=== PATIENT | male | born 1965 | race African-American/Black ===

== ENCOUNTER 2018-05-23 02:30 | Emergency (ER) | payer OTHER ==
--- NOTE | 2018-05-23 02:42 | PDOC ---
History of Present Illness - General Stated Complaint: WEAKNESS Time Seen by Provider: 05/23/18 02:41 History Source: Patient Exam Limitations: No Limitations - History of Present Illness Initial Comments: 05/23/18 05:46 Mr. Thomas is a 53 yo M with a hx of GERD who presents to the emergency department with generalized fatigue and throat pain. He states he has been feeling fatigue for the past week. He endorses having poor quality sleep and is "napping during work" which is a new phenomenon. In addition, he endorses having rhinorrhea with loose stool, but denies recent sick contacts, fever, cough, and dysuria. He expressed concern with having oral exposure to trichomoniasis over the past week from a female partner. Pmhx: GERD Shx: None Medications: None Allergies: NKDA Social: smokes 0.5-1 pack/day, and denies drinking and illicit substance use. PCP: Nohemi العراقي. Past History - Past Medical History Allergies/Adverse Reactions: Allergies Allergy/AdvReac Type Severity Reaction Status Date / Time No Known Allergies Allergy Verified 05/23/18 03:04 Home Medications: Ambulatory Orders Unobtainable 05/23/18 Review of Systems - Review of Systems Able to Perform ROS?: Yes Constitutional: Yes: Weakness. No: Chills, Fever, Night Sweats HEENTM: Yes: Throat Pain. No: Recent change in vision, Ear Discharge, Nose Pain , Mouth Pain, Mouth Swelling Respiratory: No: Cough, Shortness of Breath Cardiac (ROS): No: Chest Pain, Lightheadedness, Palpitations ABD/GI: No: Abdominal Distended, Constipated, Diarrhea, Nausea, Rectal Bleeding , Vomiting, Tarry Stools : No: Burning, Dysuria, Hematuria Musculoskeletal: No: Back Pain Integumentary: No: Rash Neurological: No: Headache, Ataxia Psychiatric: Yes: Sleep Pattern Change Endocrine: No: Unexplained Weight Gain Hematologic/Lymphatic: No: Anemia *Physical Exam - Physical Exam General Appearance: Yes: Nourished, Appropriately Dressed HEENT: positive: EOMI, AUSTEN, Pharyngeal Erythema, Tonsillar Erythema. negative : Tonsillar Exudate, Sinus Tenderness, TM Bulging Neck: negative: Lymphadenopathy (R), Lymphadenopathy (L) Respiratory/Chest: positive: Lungs Clear, Normal Breath Sounds Cardiovascular: positive: Regular Rhythm, Regular Rate, S1, S2. negative: Systolic Murmur Vascular Pulses: Dorsalis-Pedis (R): 3+, Doralis-Pedis (L): 3+ Gastrointestinal/Abdominal: positive: Normal Bowel Sounds. negative: Tender Lymphatic: negative: Adenopathy Musculoskeletal: positive: Normal Inspection. negative: CVA Tenderness Extremity: positive: Other (hx of fasciotomy). negative: Calf Tenderness Integumentary: positive: Normal Color, Dry, Warm Neurologic: positive: airplane tester II-XII NML intact, Fully Oriented, Alert ED Treatment Course - LABORATORY CBC & Chemistry Diagram: 05/23/18 04:12 05/23/18 04:12 Medical Decision Making - Medical Decision Making 05/23/18 05:58 Mr. Thomas is a 53 yo M with a hx of GERD who presented with generalized fatigue and throat pain. Initial vitals: Initial Vital Signs Temp Pulse Resp BP Pulse Ox 97.6 F 74 20 122/103 99 05/23/18 03:04 05/23/18 03:04 05/23/18 03:04 05/23/18 03:04 05/23/18 03:04 Work up: Laboratory Results - last 24 hr 05/23/18 05/23/18 05/23/18 03:24 04:12 04:12 WBC 4.7 RBC 5.20 Hgb 13.4 Hct 40.9 MCV 78.7 L MCH 25.8 MCHC 32.8 RDW 15.4 Plt Count 208 MPV 8.9 Absolute Neuts (auto) 2.0 Neutrophils % 41.4 L Lymphocytes % 50.9 H Monocytes % 5.6 Eosinophils % 1.4 Basophils % 0.7 Nucleated RBC % 0 Sodium 145 Potassium 3.9 Chloride 109 H Carbon Dioxide 27 Anion Gap 9 BUN 11 Creatinine 1.0 Creat Clearance w eGFR > 60 Random Glucose 111 H Calcium 8.8 Total Bilirubin 0.4 AST 15 ALT 22 Alkaline Phosphatase 90 Creatine Kinase Troponin I Total Protein 7.0 Albumin 3.7 Urine Color Ltyellow Urine Appearance Clear Urine pH 5.0 Ur Specific [place] 1.014 Urine Protein 1+ H Urine Glucose (UA) Negative Urine Ketones Negative Urine Blood Negative Urine Nitrite Negative Urine Bilirubin Negative Urine Urobilinogen Negative Ur Leukocyte Esterase Negative Urine WBC (Auto) 2 Urine RBC (Auto) <1 Urine Mucus Rare HIV 1&2 Antibody Screen HIV P24 Antigen 05/23/18 05/23/18 04:12 04:12 WBC RBC Hgb Hct MCV MCH MCHC RDW Plt Count MPV Absolute Neuts (auto) Neutrophils % Lymphocytes % Monocytes % Eosinophils % Basophils % Nucleated RBC % Sodium Potassium Chloride Carbon Dioxide Anion Gap BUN Creatinine Creat Clearance w eGFR Random Glucose Calcium Total Bilirubin AST ALT Alkaline Phosphatase Creatine Kinase 91 Troponin I < 0.02 Total Protein Albumin Urine Color Urine Appearance Urine pH Ur Specific [place] Urine Protein Urine Glucose (UA) Urine Ketones Urine Blood Urine Nitrite Urine Bilirubin Urine Urobilinogen Ur Leukocyte Esterase Urine WBC (Auto) Urine RBC (Auto) Urine Mucus HIV 1&2 Antibody Screen Negative HIV P24 Antigen Negative Pending labs on STDs given history. Patient requested HIV/STD work up given his partner having a recent positive trichomoniasis. Disposition: D/C home *DC/Admit/Observation/Transfer Diagnosis at time of Disposition: Pharyngitis Qualifiers: Pharyngitis/tonsillitis etiology: unspecified etiology Qualified Code(s): J02.9 - Acute pharyngitis, unspecified - Discharge Dispostion Disposition: HOME Decision to Admit order: No - Referrals Referrals: [facility] [Provider Group] - Patient Instructions Printed Discharge Instructions: DI for Pharyngitis/Tonsillopharyngitis -- Adult Additional Instructions: You have been diagnosed with pharyngitis. Please follow up with your primary care doctor or with our internal medicine clinic within 1-2 days for follow up care. Please return to the emergency department if there are worsening of symptoms or new concerning ones arising. - Post Discharge Activity
--- NOTE | 2018-05-23 02:43 | PDOC ---
Attending Attestation - HPI HPI: 05/23/18 04:33 The patient is a 53 year old male who presents to the emergency department for evaluation of generalized weakness and left arm pain. The patient reports left arm pain radiating to her elbow. He reports the pain is exacerbated with shoulder movement. He reports associated symptoms of generalized weakness, sore throat, and rhinorrhea. Pt states he visits the ED for further evaluation of his symptoms secondary to recently having oral sex with a female who has trichomoniasis The patient denies chest pain, shortness of breath, headache, and dizziness. Denies fever, chills, nausea, and vomiting. Denies diarrhea, constipation, urinary frequency/urgency, dysuria, and hematuria. 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 Smokes half a pack per day. No reported alcohol or drug use. - Physicial Exam PE: GENERAL: Awake, alert, and fully oriented, in no acute distress HEAD: No signs of trauma EYES: PERRLA, EOMI, sclera anicteric, conjunctiva clear ENT: (+)Pharyngeal erythema. Auricles normal inspection, hearing grossly normal , nares patent, oropharynx clear without exudates. Moist mucosa NECK: Normal ROM, supple, no lymphadenopathy, JVD, or masses LUNGS: Breath sounds equal, clear to auscultation bilaterally. No wheezes, and no crackles HEART: Regular rate and rhythm, normal S1 and S2, no murmurs, rubs or gallops ABDOMEN: Soft, nontender, normoactive bowel sounds. No guarding, no rebound. No masses EXTREMITIES: Normal range of motion, no edema. No clubbing or cyanosis. No cords, erythema, or tenderness NEUROLOGICAL: Cranial nerves II through XII grossly intact. Normal speech, normal gait SKIN: Warm, Dry, normal turgor, no rashes or lesions noted. <Luh Schultz - Last Filed: 05/23/18 05:36> - Resident Resident Name: Nixon Sy - ED Attending Attestation I have performed the following: I have examined & evaluated the patient, The case was reviewed & discussed with the resident, I agree w/resident's findings & plan - Medical Decision Making 05/23/18 21:13 Pt has a viral pharyngitis. Home with PMD follow up. 05/23/18 21:13 He requested HIV test. HIV negative. <Gisele Reina - Last Filed: 05/23/18 21:14> Attestations - Attestations Documentation prepared by Luh Schultz, acting as biomedical service engineer for Gisele Reina MD. <Luh Schultz - Last Filed: 05/23/18 05:36>
[2018-05-23 03:06] VITALS: BP 122/103; PULSE 74; TEMP 97.6; BMI 40.8
[2018-05-23] MEDS ORDERED: ASPIRIN 325 MG TABLET PO ONE (04:04)
[2018-05-23] MEDS ORDERED: ASPIRIN 325 MG TABLET ONE (04:09)
[2018-05-23 04:29] LABS: BASO % 0.7 % (0-2.0); EOS % 1.4 % (0-4.5); HEMATOCRIT 40.9 % (35.4-49); HEMOGLOBIN 13.4 GM/dL (11.7-16.9); LYMPH % 50.9 % (8-40); MCH 25.8 pg (25.7-33.7); MCHC 32.8 g/dl (32.0-35.9); MEAN CELL VOLUME 78.7 fl (80-96); MEAN PLT VOLUME 8.9 fl (7.5-11.1); MONO % 5.6 % (3.8-10.2); NEUT % 41.4 % (42.8-82.8); PLATELET COUNT 208 K/MM3 (134-434); RDW 15.4 % (11.9-15.9); WHITE BLOOD COUNT 4.7 K/mm3 (4.0-10.0)
[2018-05-23 04:43] LABS: URINE APPEARANCE CLEAR; URINE BILIRUBIN NEGATIVE (<2.0 mg/dL); URINE COLOR LTYELLOW; URINE GLUCOSE (UA) NEGATIVE (NEGATIVE); URINE KETONE NEGATIVE (NEGATIVE); URINE LEUK ESTERASE NEGATIVE (NEGATIVE); URINE NITRITE NEGATIVE (NEGATIVE); URINE UROBILINOGEN NEGATIVE mg/dL (0.2-1.0)
[2018-05-23 04:50] LABS: URINE PROTEIN 1+ (NEGATIVE)
[2018-05-23 04:51] LABS: URINE MUCUS RARE
[2018-05-23 04:57] LABS: ALBUMIN 3.7 g/dl (3.4-5.0); ALK PHOS 90 U/L (45-117); ANION GAP 9 (8-16); BILIRUBIN,TOTAL 0.4 mg/dL (0.2-1.0); BLOOD UREA NITROGEN 11 mg/dL (7-18); CALCIUM 8.8 mg/dL (8.5-10.1); CHLORIDE 109 mmol/L (98-107); CO2 27 mmol/L (21-32); GLUCOSE,RANDOM 111 mg/dL (74-106); POTASSIUM 3.9 mmol/L (3.5-5.1); SGOT/AST 15 U/L (15-37); SGPT/ALT 22 U/L (12-78); SODIUM 145 mmol/L (136-145)
--- NOTE | 2018-05-24 10:24 | EKG ---
Test Reason : Blood Pressure : / mmHG Vent. Rate : 064 BPM Atrial Rate : 064 BPM P-R Int : 186 ms QRS Dur : 100 ms QT Int : 406 ms P-R-T Axes : 063 024 038 degrees QTc Int : 418 ms NORMAL SINUS RHYTHM NORMAL ECG NO PREVIOUS ECGS AVAILABLE Confirmed by ROD DISLA MD ([id number]) on 05/24/2018 10:24:27 AM Referred By: Confirmed By:ROD DISLA MD
== END 2018-05-23 05:51 | disposition home or self-care (01) ==
LOC: JER 02:30
DX: J02.9 Acute pharyngitis, unspecified (principal); Z20.2 Contact with and (suspected) exposure to infections with a predominantly sexual mode of transmission; Z11.3 Encounter for screening for infections with a predominantly sexual mode of transmission
CPT/HCPCS: 36415; 80053; 81003; 81015; 82550; 84484; 85025; 87086; 87389; 87491; 87591; 93005; 93010; 99282-25

== ENCOUNTER 2018-11-09 02:37 | Emergency (ER) | payer OTHER ==
[2018-11-09 03:17] VITALS: BP 122/75; PULSE 77; TEMP 98.5; BMI 42.3
--- NOTE | 2018-11-09 03:17 | PDOC ---
Medical Decision Making - Medical Decision Making 11/09/18 03:17 Patient seen by the advanced practice provider under my direct supervision. Ancillary testing reviewed as necessary. I agree with plan as outlined by the advanced practice provider. *DC/Admit/Observation/Transfer Diagnosis at time of Disposition: Urethritis - Discharge Dispostion Disposition: HOME Condition at time of disposition: Fair - Prescriptions Prescriptions: Doxycycline Monohydrate [Monodox] 100 mg PO Q12H #14 capsule - Referrals - Patient Instructions Printed Discharge Instructions: Urethritis Additional Instructions: drink plenty of fluids you are treated for sexually transmitted disease. your partner should be tested. no sexual activity for 1 week. follow up with your doctor as soon as possible. - Post Discharge Activity Forms/Work/School Notes: Back to Work
--- NOTE | 2018-11-09 03:18 | PDOC ---
History of Present Illness - General Chief Complaint: Urinary Problem Stated Complaint: URINARY PROBLEM Time Seen by Provider: 11/09/18 03:14 History Source: Patient - History of Present Illness Initial Comments: 11/09/18 03:42 53 year-old male complaining of dysuria and frequency of urination with penile discharge for 3 weeks worsening over time. Denies abdominal pain, flank pain, nausea, vomiting, fever, chills. Patient reports that he had a new girlfriend unsure of any STI exposure reports that the condom broke. Previously. Past History - Past Medical History Allergies/Adverse Reactions: Allergies Allergy/AdvReac Type Severity Reaction Status Date / Time No Known Allergies Allergy Verified 11/09/18 03:17 Home Medications: Ambulatory Orders Doxycycline Monohydrate [Monodox] 100 mg PO Q12H #14 capsule 11/09/18 - Suicide/Smoking/Psychosocial Hx Smoking History: Never smoked Have you smoked in the past 12 months: No Number of Cigarettes Smoked Daily: 10 Information on smoking cessation initiated: No Hx Alcohol Use: No Drug/Substance Use Hx: No Review of Systems - Review of Systems Able to Perform ROS?: Yes Is the patient limited Taiwanese proficient: No Constitutional: No: Symptoms Reported, See HPI, Chills, Diaphoresis, Fever, Loss of Appetite, Malaise, Night Sweats, Weakness, Weight Stable, Unintentional Wgt. Loss, Unexplained wgt Loss, Other : Yes: Dysuria, Discharge (penile discharge), Frequency, Urgency. No: Testicular Pain *Physical Exam - Vital Signs Last Vital Signs Temp Pulse Resp BP Pulse Ox 98.5 F 77 15 122/75 98 11/09/18 02:37 11/09/18 02:37 11/09/18 02:37 11/09/18 02:37 11/09/18 02:37 - Physical Exam General Appearance: Yes: Appropriately Dressed Gastrointestinal/Abdominal: positive: Normal Bowel Sounds, Soft. negative: Tender Male Genitalia: positive: normal genitalia, discharge (clear discharge). negative: testicular tenderness, epididymus tender Musculoskeletal: positive: Normal Inspection. negative: CVA Tenderness Extremity: positive: Normal Capillary Refill, Normal Inspection, Normal Range of Motion Moderate Sedation - Procedure Monitoring Vital Signs: Procedure Monitoring Vital Signs Temperature 98.5 F 11/09/18 02:37 Pulse Rate 77 11/09/18 02:37 Respiratory Rate 15 11/09/18 02:37 Blood Pressure 122/75 11/09/18 02:37 O2 Sat by Pulse Oximetry (%) 98 11/09/18 02:37 Medical Decision Making - Medical Decision Making 11/09/18 04:20 Urethritis P: azithromycin/ ceftriaxone *DC/Admit/Observation/Transfer Diagnosis at time of Disposition: Urethritis - Discharge Dispostion Disposition: HOME Condition at time of disposition: Fair - Prescriptions Prescriptions: Doxycycline Monohydrate [Monodox] 100 mg PO Q12H #14 capsule - Referrals - Patient Instructions Printed Discharge Instructions: Urethritis Additional Instructions: drink plenty of fluids you are treated for sexually transmitted disease. your partner should be tested. no sexual activity for 1 week. follow up with your doctor as soon as possible. - Post Discharge Activity Forms/Work/School Notes: Back to Work
[2018-11-09] MEDS ORDERED: AZITHROMYCIN 500 MG TABLET PO ONE (03:44)
[2018-11-09] MEDS ORDERED: cefTRIAXone SODIUM 1 GM VIAL ONE (03:52)
[2018-11-09] MEDS ORDERED: AZITHROMYCIN 250 MG TABLET ONE (03:52)
[2018-11-09] MEDS ORDERED: LIDOCAINE HCL 1%, 10 MG/ML (20ML VIAL) ONE (03:53)
[2018-11-09 03:55] LABS: URINE APPEARANCE CLEAR; URINE BILIRUBIN NEGATIVE (<2.0 mg/dL); URINE COLOR LTYELLOW; URINE GLUCOSE (UA) NEGATIVE (NEGATIVE); URINE KETONE NEGATIVE (NEGATIVE); URINE LEUK ESTERASE NEGATIVE (NEGATIVE); URINE NITRITE NEGATIVE (NEGATIVE); URINE PROTEIN NEGATIVE (NEGATIVE); URINE UROBILINOGEN NEGATIVE mg/dL (0.2-1.0)
== END 2018-11-09 04:52 | disposition home or self-care (01) ==
LOC: JER 02:37
DX: N34.2 Other urethritis (principal)
CPT/HCPCS: 36415; 81003; 87086; 87491; 87591; 99281-25

== ENCOUNTER 2021-02-18 08:58 | Emergency (ER) | payer OTHER ==
[2021-02-18 09:11] VITALS: TEMP 98.5; BMI 45.0
[2021-02-18] MEDS ORDERED: PIPERACILLIN/TAZOB 3.375 GM 3.375 GM/50 ML BAG IVPB ONE (09:36)
[2021-02-18] MEDS ORDERED: diazePAM 5 MG TABLET PO ONE (10:06)
[2021-02-18] MEDS ORDERED: ALBUTEROL SO4 HFA INHALER IH ONE ×2 (10:38→11:46)
[2021-02-18 11:29] LABS: BASO % 0.5 % (0-2.0); HEMATOCRIT 42.5 % (35.4-49); HEMOGLOBIN 14.4 GM/dL (11.7-16.9); MCH 26.7 pg (25.7-33.7); MCHC 33.9 g/dl (32.0-35.9); MEAN CELL VOLUME 78.8 fl (80-96); MEAN PLT VOLUME 8.9 fl (7.5-11.1); MONO % 8.6 % (3.8-10.2); NEUT % 80.9 % (42.8-82.8); PLATELET COUNT 229 K/MM3 (134-434); RBC 5.39 M/mm3 (4.00-5.60); RDW 15.8 % (11.9-15.9); WHITE BLOOD COUNT 12.7 K/mm3 (4.0-10.0)
[2021-02-18 11:46] LABS: CALCIUM 9.6 mg/dL (8.5-10.1)
[2021-02-18] MEDS ORDERED: diazePAM 5 MG TABLET ONE (11:46)
[2021-02-18 11:47] LABS: ALBUMIN 3.8 g/dl (3.4-5.0); BLOOD UREA NITROGEN 13.9 mg/dL (7-18)
[2021-02-18 11:52] LABS: BILIRUBIN,TOTAL 0.9 mg/dL (0.2-1); TOT PROT 8.3 g/dl (6.4-8.2)
[2021-02-18 11:55] LABS: N-TERMINAL BNP 87.5 pg/ml (5-125)
[2021-02-18] MEDS: BAMLANIVIMAB 700 MG, ETESEVIMAB 1,400 MG in SODIUM CHLORIDE 250 ML IVPB ONE ×2 (15:05→15:18)
[2021-02-18 16:16] VITALS: BP 135/68; PULSE 85
== END 2021-02-18 16:23 | disposition home or self-care (01) ==
LOC: JER 08:58
PROC: 3E0F7GC Introduction of Other Therapeutic Substance into Respiratory Tract, Via Natural or Artificial Opening (ICD-10-PCS; principal; 2021-02-18)
PROC: 3E03329 Introduction of Other Anti-infective into Peripheral Vein, Percutaneous Approach (ICD-10-PCS; 2021-02-18)
DX: F14.10 Cocaine abuse, uncomplicated (principal); R07.9 Chest pain, unspecified; U07.1 COVID-19
CPT/HCPCS: 36415; 71045-TC-FY; 80053; 82550; 82553; 83880; 84132; 84484; 85025; 93005; 93010; 99285-25; C9803; M0239; Q0239; Q0245; U0003; U0005

== ENCOUNTER 2023-05-15 01:56 | Observation (INO) | payer OTHER ==
[2023-05-15] MEDS ORDERED: ONDANSETRON 4 MG/2 ML VIAL IVPUSH ONE (03:32)
[2023-05-15] MEDS ORDERED: ACETAMINOPHEN 1000 MG/100 ML BAG IVPB ONE (03:32)
[2023-05-15] MEDS ORDERED: SODIUM CHLORIDE 0.9% 500 ML INFUS.BAG IV ONE (03:32)
[2023-05-15] MEDS ORDERED: FAMOTIDINE 20 MG/50 ML IVPB 20 MG/50 ML MG IVPB ONE ×2 (03:33→03:35)
[2023-05-15] MEDS ORDERED: ACETAMINOPHEN INJECTION 100 ML IVPB ONE (03:35)
[2023-05-15] MEDS ORDERED: ONDANSETRON 4 MG/2 ML VIAL ONE (03:35)
[2023-05-15 03:42] LABS: BASO % 0.6 % (0-2.0); EOS % 1.1 % (0-4.5); HEMATOCRIT 44.4 % (35.4-49); HEMOGLOBIN 15.1 GM/dL (11.7-16.9); LYMPH % 19.6 % (8-40); MCH 26.2 pg (25.7-33.7); MCHC 33.9 g/dl (32.0-35.9); MEAN CELL VOLUME 77.3 fl (80-96); MEAN PLT VOLUME 8.6 fl (7.5-11.1); MONO % 7.9 % (3.8-10.2); NEUT % 70.8 % (42.8-82.8); PLATELET COUNT 255 10^3/uL (134-434); RBC 5.75 M/mm3 (4.00-5.60); RDW 15.4 % (11.9-15.9); WHITE BLOOD COUNT 9.5 K/mm3 (4.0-10.0)
[2023-05-15 03:53] LABS: INR 1.12 (0.83-1.09)
[2023-05-15 03:56] LABS: URINE APPEARANCE CLEAR; URINE BILIRUBIN NEGATIVE (NEGATIVE); URINE COLOR YELLOW; URINE GLUCOSE (UA) NEGATIVE (NEGATIVE); URINE KETONE 1+ (NEGATIVE); URINE LEUK ESTERASE NEGATIVE (NEGATIVE); URINE NITRITE NEGATIVE (NEGATIVE); URINE PROTEIN NEGATIVE (NEGATIVE)
[2023-05-15 04:00] LABS: POTASSIUM 4.3 mmol/L (3.5-5.1)
[2023-05-15 04:03] LABS: ALBUMIN 3.5 g/dl (3.4-5.0); BLOOD UREA NITROGEN 12.6 mg/dL (7-18); CALCIUM 9.6 mg/dL (8.5-10.1)
[2023-05-15 04:06] LABS: CREATININE 1.1 mg/dL (0.55-1.3)
[2023-05-15 04:08] LABS: BILIRUBIN,TOTAL 0.5 mg/dL (0.2-1); TOT PROT 7.6 g/dl (6.4-8.2)
[2023-05-15] MEDS ORDERED: LACTATED RINGERS SOLUTION 1,000 ML/1,000 ML INFUS.BAG IV SCH (07:45)
[2023-05-15] MEDS ORDERED: morphine CARPU-JECT 4 MG/1 ML DISP.SYRIN IVPUSH ONE (07:50)
[2023-05-15] MEDS ORDERED: morphine SULFATE 4 MG/ML VIAL ONE (07:56)
[2023-05-15] MEDS ORDERED: TRIMETHOBENZAMIDE HCL 200MG/2ML INJ IM PRN (08:50)
[2023-05-15 08:53] LABS: POTASSIUM 4.4 mmol/L (3.5-5.1)
[2023-05-15 08:56] LABS: CALCIUM 8.7 mg/dL (8.5-10.1)
[2023-05-15 08:57] LABS: ALBUMIN 3.2 g/dl (3.4-5.0); BLOOD UREA NITROGEN 12.8 mg/dL (7-18)
[2023-05-15 08:59] LABS: CREATININE 0.9 mg/dL (0.55-1.3)
[2023-05-15 09:00] LABS: TOT PROT 7.1 g/dl (6.4-8.2)
[2023-05-15 09:01] LABS: BILIRUBIN,TOTAL 0.7 mg/dL (0.2-1)
[2023-05-15] MEDS ORDERED: NALOXONE HCL 0.4 MG/ML VIAL IVPUSH PRN (09:50)
[2023-05-15] MEDS ORDERED: ONDANSETRON 4 MG/2 ML VIAL IVPUSH PRN (09:57)
[2023-05-15] MEDS ORDERED: BISACODYL 5 MG TABLET.DR (FP) PO ONE (10:15)
[2023-05-15] MEDS ORDERED: SENNOSIDES 8.6MG TABLET (FP) PO ONE (10:15)
[2023-05-15] MEDS: ENOXAPARIN NA (PORCINE) 40 MG/0.4 ML DISP.SYRIN SQ SCH ×2 (10:49→22:02)
[2023-05-15] MEDS: LACTATED RINGERS SOLUTION 1,000 ML/1,000 ML INFUS.BAG IV SCH (10:49)
[2023-05-15 11:15] VITALS: BMI 45.4
[2023-05-15] MEDS: ACETAMINOPHEN 1000 MG/100 ML BAG IVPB SCH ×3 (11:19→22:02)
[2023-05-15] MEDS ORDERED: CLOTRIMAZOLE 1%TOPICAL SOLUTION 30 ML BOTTLE TP SCH (12:00)
[2023-05-15] MEDS ORDERED: ALBUTEROL SO4 HFA INHALER IH PRN (13:10)
[2023-05-15] MEDS: ATORVASTATIN CA 20 MG TABLET (FP) PO SCH (14:09)
[2023-05-15] MEDS: AMOX TR/POT CLAV 875MG/125MG TABLETS (FP) PO SCH ×2 (14:09→22:01)
[2023-05-15] MEDS: CLOTRIMAZOLE 1% 10 ML TOPICAL SOLUTION TP SCH ×3 (14:10→23:07)
[2023-05-15] MEDS: LIDOCAINE PATCH REMOVAL MC SCH ×2 (22:01→23:08)
[2023-05-15] MEDS: FAMOTIDINE 20 MG TABLET PO SCH (22:04)
[2023-05-16] MEDS: ACETAMINOPHEN 1000 MG/100 ML BAG IVPB SCH ×4 (03:18→22:36)
[2023-05-16] MEDS: NICOTINE 7 MG/24 HOURS TOPICAL PATCH TD SCH (10:03)
[2023-05-16] MEDS: FAMOTIDINE 20 MG TABLET PO SCH ×2 (10:03→21:20)
[2023-05-16] MEDS: AMOX TR/POT CLAV 875MG/125MG TABLETS (FP) PO SCH (10:03)
[2023-05-16] MEDS: ENOXAPARIN NA (PORCINE) 40 MG/0.4 ML DISP.SYRIN SQ SCH ×2 (10:03→22:36)
[2023-05-16] MEDS: LACTATED RINGERS SOLUTION 1,000 ML/1,000 ML INFUS.BAG IV SCH ×2 (10:04→21:23)
[2023-05-16] MEDS: CLOTRIMAZOLE 1% 10 ML TOPICAL SOLUTION TP SCH ×2 (10:05→21:35)
[2023-05-16] MEDS: LIDOCAINE 5% TOPICAL PATCH TP SCH (13:34)
[2023-05-16] MEDS: amLODIPine BESYLATE 5 MG TABLET (FP) PO SCH ×2 (13:41→13:50)
[2023-05-16] MEDS: POLYETHYLENE GLYCOL (HEALTHYLAX) 3350 17 GM PACKET PO SCH (13:41)
[2023-05-16] MEDS: SENNOSIDES 8.6MG TABLET (FP) PO SCH (13:41)
[2023-05-16] MEDS: oxyCODONE HCL 5 MG TABLET PO PRN ×2 (13:52→21:20)
[2023-05-16] MEDS: ATORVASTATIN CA 20 MG TABLET (FP) PO SCH (21:20)
[2023-05-16] MEDS: LIDOCAINE PATCH REMOVAL MC SCH (21:23)
[2023-05-17] MEDS: ACETAMINOPHEN 1000 MG/100 ML BAG IVPB SCH ×4 (03:46→23:27)
[2023-05-17] MEDS: oxyCODONE HCL 5 MG TABLET PO PRN ×2 (08:22→14:05)
[2023-05-17] MEDS: ENOXAPARIN NA (PORCINE) 40 MG/0.4 ML DISP.SYRIN SQ SCH ×2 (10:16→22:11)
[2023-05-17] MEDS: LIDOCAINE 5% TOPICAL PATCH TP SCH (10:16)
[2023-05-17] MEDS: NICOTINE 7 MG/24 HOURS TOPICAL PATCH TD SCH (10:17)
[2023-05-17] MEDS: LACTATED RINGERS SOLUTION 1,000 ML/1,000 ML INFUS.BAG IV SCH (10:17)
[2023-05-17] MEDS: amLODIPine BESYLATE 5 MG TABLET (FP) PO SCH (10:18)
[2023-05-17] MEDS: DOCUSATE SODIUM 100 MG CAPSULE (FP) PO SCH (10:18)
[2023-05-17] MEDS: FAMOTIDINE 20 MG TABLET PO SCH ×2 (10:19→22:10)
[2023-05-17] MEDS: POLYETHYLENE GLYCOL (HEALTHYLAX) 3350 17 GM PACKET PO SCH (10:19)
[2023-05-17] MEDS: SENNOSIDES 8.6MG TABLET (FP) PO SCH (10:21)
[2023-05-17] MEDS: CLOTRIMAZOLE 1% 10 ML TOPICAL SOLUTION TP SCH ×3 (10:21→22:11)
[2023-05-17 11:20] LABS: BASO % 0.6 % (0-2.0); EOS % 3.9 % (0-4.5); HEMATOCRIT 39.8 % (35.4-49); HEMOGLOBIN 13.2 GM/dL (11.7-16.9); LYMPH % 34.3 % (8-40); MCH 25.9 pg (25.7-33.7); MCHC 33.2 g/dl (32.0-35.9); MEAN PLT VOLUME 8.9 fl (7.5-11.1); MONO % 11.1 % (3.8-10.2); NEUT % 50.1 % (42.8-82.8); PLATELET COUNT 200 10^3/uL (134-434); RDW 14.8 % (11.9-15.9)
[2023-05-17 11:29] LABS: POTASSIUM 4.5 mmol/L (3.5-5.1)
[2023-05-17 11:32] LABS: CALCIUM 8.7 mg/dL (8.5-10.1)
[2023-05-17 11:33] LABS: ALBUMIN 2.8 g/dl (3.4-5.0); BLOOD UREA NITROGEN 14.6 mg/dL (7-18)
[2023-05-17 11:35] LABS: CREATININE 0.9 mg/dL (0.55-1.3)
[2023-05-17 11:37] LABS: BILIRUBIN,TOTAL 0.5 mg/dL (0.2-1); TOT PROT 6.4 g/dl (6.4-8.2)
[2023-05-17] MEDS ORDERED: oxyCODONE HCL 5 MG TABLET PO PRN (17:59)
[2023-05-17] MEDS: ATORVASTATIN CA 20 MG TABLET (FP) PO SCH (22:10)
[2023-05-17] MEDS: LIDOCAINE PATCH REMOVAL MC SCH (22:11)
[2023-05-18] MEDS: ACETAMINOPHEN 1000 MG/100 ML BAG IVPB SCH ×2 (06:16→13:40)
[2023-05-18 09:04] LABS: BASO % 0.7 % (0-2.0); EOS % 3.5 % (0-4.5); HEMATOCRIT 40.8 % (35.4-49); HEMOGLOBIN 13.1 GM/dL (11.7-16.9); LYMPH % 36.3 % (8-40); MCH 25.8 pg (25.7-33.7); MCHC 32.1 g/dl (32.0-35.9); MEAN CELL VOLUME 80.4 fl (80-96); MEAN PLT VOLUME 9.8 fl (7.5-11.1); MONO % 10.1 % (3.8-10.2); NEUT % 49.4 % (42.8-82.8); PLATELET COUNT 223 10^3/uL (134-434); RBC 5.08 M/mm3 (4.00-5.60); RDW 14.6 % (11.9-15.9); WHITE BLOOD COUNT 4.5 K/mm3 (4.0-10.0)
[2023-05-18 09:21] LABS: POTASSIUM 4.5 mmol/L (3.5-5.1)
[2023-05-18 09:26] LABS: BLOOD UREA NITROGEN 12.5 mg/dL (7-18)
[2023-05-18 09:30] LABS: TOT PROT 6.8 g/dl (6.4-8.2)
[2023-05-18 09:31] LABS: BILIRUBIN,TOTAL 0.3 mg/dL (0.2-1)
[2023-05-18] MEDS: CLOTRIMAZOLE 1% 10 ML TOPICAL SOLUTION TP SCH (09:45)
[2023-05-18] MEDS: amLODIPine BESYLATE 5 MG TABLET (FP) PO SCH (09:45)
[2023-05-18] MEDS: POLYETHYLENE GLYCOL (HEALTHYLAX) 3350 17 GM PACKET PO SCH ×2 (09:45→10:47)
[2023-05-18] MEDS: LIDOCAINE 5% TOPICAL PATCH TP SCH (09:45)
[2023-05-18] MEDS: SENNOSIDES 8.6MG TABLET (FP) PO SCH ×2 (09:46→10:47)
[2023-05-18] MEDS: FAMOTIDINE 20 MG TABLET PO SCH (10:41)
[2023-05-18] MEDS: NICOTINE 7 MG/24 HOURS TOPICAL PATCH TD SCH (10:41)
[2023-05-18] MEDS: ENOXAPARIN NA (PORCINE) 40 MG/0.4 ML DISP.SYRIN SQ SCH (10:41)
[2023-05-18] MEDS: DOCUSATE SODIUM 100 MG CAPSULE (FP) PO SCH (10:42)
[2023-05-18 11:33] VITALS: BP 121/66; PULSE 71; RESP 18; TEMP 98.1
== END 2023-05-18 13:55 | disposition home or self-care (01) ==
LOC: JER 01:56 → JERBED 07:38 → J7W 09:01
PROVIDERS: ADMIT Internal Medicine; ATTEND Internal Medicine
PROC: 3E033NZ Introduction of Analgesics, Hypnotics, Sedatives into Peripheral Vein, Percutaneous Approach (ICD-10-PCS; principal; 2023-05-15)
PROC: 3E023GC Introduction of Other Therapeutic Substance into Muscle, Percutaneous Approach (ICD-10-PCS; 2023-05-15)
PROC: 3E033GC Introduction of Other Therapeutic Substance into Peripheral Vein, Percutaneous Approach (ICD-10-PCS; 2023-05-15)
PROC: 3E0337Z Introduction of Electrolytic and Water Balance Substance into Peripheral Vein, Percutaneous Approach (ICD-10-PCS; 2023-05-15)
DX: K85.90 Acute pancreatitis without necrosis or infection, unspecified (principal); K21.9 Gastro-esophageal reflux disease without esophagitis; J45.909 Unspecified asthma, uncomplicated; E66.01 Morbid (severe) obesity due to excess calories; Z68.42 Body mass index [BMI] 45.0-49.9, adult; R10.13 Epigastric pain; E78.5 Hyperlipidemia, unspecified; Z87.2 Personal history of diseases of the skin and subcutaneous tissue
CPT/HCPCS: 36415; 74177-TC; 76705-TC; 80053; 80061; 81003; 82962; 83690; 84484; 85025; 85610; 85730; 86140; 87086; 93005; 93010; 93970-TC; 99285-25; G0378; Q9967

== ENCOUNTER 2023-07-05 06:36 | Emergency (ER) | payer OTHER ==
[2023-07-05 06:47] VITALS: BP 120/66; PULSE 108; RESP 18; TEMP 98; BMI 45.9
[2023-07-05 08:41] LABS: INR 1.13 (0.83-1.09); PROTHROMBIN TIME (PATIENT) 13.1 SEC (9.7-13.0)
[2023-07-05 08:44] LABS: ACTIVATED PTT 34.8 SECONDS (25.2-36.5)
[2023-07-05 08:57] LABS: BASO % 0.4 % (0-2.0); EOS % 0.1 % (0-4.5); HEMATOCRIT 39.7 % (35.4-49); HEMOGLOBIN 13.2 GM/dL (11.7-16.9); MCHC 33.2 g/dl (32.0-35.9); MEAN CELL VOLUME 78.3 fl (80-96); MEAN PLT VOLUME 9.1 fl (7.5-11.1); MONO % 8.5 % (3.8-10.2); PLATELET COUNT 229 10^3/uL (134-434); RBC 5.06 M/mm3 (4.00-5.60); RDW 15.4 % (11.9-15.9); WHITE BLOOD COUNT 9.1 K/mm3 (4.0-10.0)
[2023-07-05 09:02] LABS: MAGNESIUM 2.2 mg/dL (1.8-2.4)
[2023-07-05 09:10] LABS: N-TERMINAL BNP 61.6 pg/ml (5-125)
[2023-07-05 10:31] LABS: POTASSIUM 3.9 mmol/L (3.5-5.1)
[2023-07-05 10:33] LABS: CALCIUM 8.9 mg/dL (8.5-10.1)
[2023-07-05 10:37] LABS: CREATININE 0.9 mg/dL (0.55-1.3)
[2023-07-05 10:38] LABS: BILIRUBIN,TOTAL 1.2 mg/dL (0.2-1); TOT PROT 7.4 g/dl (6.4-8.2)
== END 2023-07-05 14:41 | disposition home or self-care (01) ==
LOC: JER 06:36
DX: R10.31 Right lower quadrant pain (principal); R10.32 Left lower quadrant pain; R22.43 Localized swelling, mass and lump, lower limb, bilateral; R17 Unspecified jaundice; F10.10 Alcohol abuse, uncomplicated; Y90.9 Presence of alcohol in blood, level not specified
CPT/HCPCS: 36415; 71045-TC-FY; 74176-TC; 80053; 83690; 83735; 83880; 84484; 85025; 85610; 85730; 93005; 93010; 99285-25